=== PATIENT | male | born 1965 | race Caucasian/White ===

== ENCOUNTER → 2020-03-04 | Emergency (ER) | payer MEDICAID ==
[~2020-03-04] VITALS: Ht 170.2 cm; Wt 83.9 kg
[~2020-03-04] MED LIST: LIDOCAINE 1% INJ 50 ML MDV IJ ONE; oxyCODONE/APAP (5/325 MG) 1 UDTAB TABLET ONE; oxyCODONE/APAP (5/325 MG) 1 UDTAB TABLET PO ONE
[2020-03-04 10:45] VITALS: BP 128/81
== END | disposition home or self-care (01) ==
LOC: ER 10:43
DX: S63.284A Dislocation of proximal interphalangeal joint of right ring finger, initial encounter (principal); M79.641 Pain in right hand; W20.8XXA Other cause of strike by thrown, projected or falling object, initial encounter; Y93.89 Activity, other specified; Y92.89 Other specified places as the place of occurrence of the external cause; Y99.8 Other external cause status
CPT/HCPCS: 26770; 73110; 73130; 73140; 99284; J3490

== ENCOUNTER 2023-11-17 10:18 | Emergency (ER) | payer MEDICAID ==
[~2023-11-17] VITALS: Ht 170.2 cm; Wt 85.7 kg
[2023-11-17] MEDS ORDERED: FLUORESCEIN SODIUM OPHTH 1 EA STRIP ONE (10:44)
[2023-11-17] MEDS: FLUORESCEIN SODIUM OPHTH 1 EA STRIP OP ONE (10:47)
[2023-11-17] MEDS: TETRACAINE HCL 0.5% OPHTALMIC 15 ML BOTTLE OP ONE (10:47)
[2023-11-17] MEDS ORDERED: ERYT3.5O9 RIGHTEYE (12:23)
[2023-11-17 12:28] VITALS: BP 131/88; TEMP 208.4; O2SAT 100
== END 2023-11-17 12:29 | disposition home or self-care (01) ==
LOC: ER 10:47
DX: H57.8A1 Foreign body sensation, right eye (principal)